=== PATIENT | male | born 1960 | race Caucasian/White ===

== ENCOUNTER 2024-04-27 10:43 | Outpatient (CLI) | payer MEDICARE, OTHER ==
[2024-04-27 11:56] LABS: #Basophils 0.02 10x3/uL (0.0-0.2); #Eosinophils 0.17 10x3/uL (0.0-0.5); #Monocytes 0.39 10x3/uL (0.0-1.1); #Neutrophils 2.62 10x3/uL (1.5-8.4); %Basophils 0.4 % (0.0-2.0); %Eosinophils 3.6 % (0.0-6.0); %Lymphocytes 31.6 % (18.0-47.0); %Monocytes 8.3 % (0.0-10.0); %Neutrophils 55.9 % (40.0-75.0); Hematocrit 45.6 % (38.8-50.0); Hemoglobin 15.1 g/dL (13.5-17.5); Mean Corpuscular HGB CONC 33.1 g/dL (32.0-36.0); Mean Corpuscular Volume 108.6 fL (81.2-95.1); Mean Platelet Volume 8.9 fL (7.4-10.4); Platelet Count 232 10x3/uL (150-450); RBC Distribution Width 11.6 % (11.5-14.5); White Blood Cell (WBC) Count 4.7 10x3/uL (3.5-10.5)
[2024-04-27 13:10] LABS: Anion Gap 14 mmol/L (10-20); BUN (Urea Nitrogen) 12 mg/dL (8.4-25.7); Calc. Creatinine Clearance 0 mL/min (70-130); Calcium 9.6 mg/dL (7.8-10.44); Carbon Dioxide 25 mmol/L (23-31); Chloride 103 mmol/L (98-107); Estimated GFR 95; Glucose 121 mg/dL (80-115); Potassium 4.8 mmol/L (3.5-5.1); Sodium 137 mmol/L (136-145)
== END 2024-04-27 10:44 | disposition home or self-care (01) ==
LOC: CSHLAB 10:43
PROVIDERS: ATTEND Specialist
DX: Z01.818 Encounter for other preprocedural examination (principal); K42.9 Umbilical hernia without obstruction or gangrene
CPT/HCPCS: 71046; 80048; 85025; 93005; 93010

== ENCOUNTER 2024-05-04 05:52 | Day surgery (SDC) | payer MEDICARE, OTHER ==
[2024-04-27 11:30] VITALS: BMI 27.2
[2024-05-04] MEDS ORDERED: Ketorolac Tromethamine 30 MG (1 mL) VIAL ONE (06:21)
[2024-05-04] MEDS ORDERED: Acetaminophen 500 MG TAB ONE (06:22)
[2024-05-04] MEDS ORDERED: Bupivacaine/Epinephrine 0.25% 30 ML VIAL ONE (06:47)
[2024-05-04] MEDS ORDERED: CEFAZOLIN 2 GM VIAL ONE (06:47)
[2024-05-04] MEDS ORDERED: fentaNYL 50 mcg/mL 1 mL Vial ONE ×2 (07:05→08:05)
[2024-05-04] MEDS ORDERED: Dexamethasone 4 mg/ml Vial ONE (07:05)
[2024-05-04] MEDS ORDERED: Rocuronium Bromide 10 MG/ML (10ML VIAL) ONE (07:05)
[2024-05-04] MEDS ORDERED: Ondansetron PF 4 MG/2 ML Vial ONE (07:05)
[2024-05-04] MEDS ORDERED: Lidocaine 2% PF 5 ML VIAL ONE (07:05)
[2024-05-04] MEDS ORDERED: Lidocaine 4% PF 5 ML AMP ONE (07:05)
[2024-05-04] MEDS ORDERED: PROPOFOL 20 ML ONE (07:05)
[2024-05-04] MEDS ORDERED: ePHEDrine Sulfate 50 MG/10 ML VIAL ONE (07:50)
[2024-05-04] MEDS ORDERED: SUGAMMADEX SODIUM 200 MG/2 ML VIAL ONE (08:13)
== END 2024-05-04 09:42 | disposition home or self-care (01) ==
LOC: CSHSDC 05:52
PROVIDERS: ATTEND Specialist
PROC: 0WUF0JZ Supplement Abdominal Wall with Synthetic Substitute, Open Approach (ICD-10-PCS; principal; 2024-05-04)
DX: K42.9 Umbilical hernia without obstruction or gangrene (principal)
CPT/HCPCS: 49593; J1100; J1885; J2405; J2704; J3010; A6258; C1781